=== PATIENT | female | born 1990 | race African-American/Black ===

== ENCOUNTER 2022-08-01 00:11 | Emergency (ER) | payer MEDICAID, OTHER ==
[~2022-08-01] VITALS: Ht 162.6 cm; Wt 97.9 kg
[2022-08-01] MEDS ORDERED: P50 PO ×2 (03:05→03:30)
[2022-08-01] MEDS ORDERED: DIPH25CA83 PO ×2 (03:05→03:30)
[2022-08-01] MEDS ORDERED: HYDR-4622 TP ×2 (03:05→03:30)
[2022-08-01 03:52] VITALS: BP 135/98
== END 2022-08-01 03:35 | disposition home or self-care (01) ==
LOC: ER 00:11
DX: L50.0 Allergic urticaria (principal); Z86.16 Personal history of COVID-19; Z98.890 Other specified postprocedural states
CPT/HCPCS: 81025; 99283

== ENCOUNTER 2025-01-22 23:19 | Emergency (ER) | payer OTHER ==
[~2025-01-22] VITALS: Ht 172.7 cm; Wt 86.0 kg
[~2025-01-22 23:19] MED LIST: DIPH25CA83 PO; HYDR-4622 TP; P50 PO
[2025-01-22 23:23] VITALS: BP 140/91; PULSE 70; RESP 18; TEMP 37.6; O2SAT 100
[2025-01-23 00:33] LABS: BASOPHILS % 0.2 % (0.0-2.0); EOSINOPHILS % 2.3 % (0.0-5.0); HEMATOCRIT. 41.6 % (36.0-48.0); HEMOGLOBIN. 13.6 g/dL (12.0-16.0); LYMPHOCYTES % 28.9 % (20.0-50.0); MEAN CORPUSCULAR HEMOGLOBIN 30.1 pg (28.0-32.0); MEAN CORPUSCULAR HGB CONC 32.7 g/dL (31.0-37.0); MEAN PLATELET VOLUME 8.7 fl (7.4-10.4); MONOCYTES % 5.8 % (2.0-8.0); NEUTROPHILS % 62.8 % (40.0-76.0); PLATELET 315 x1000/uL (130-400); RED BLOOD CELL COUNT 4.52 mill/uL (4.2-5.4); RED CELL DISTRIBUTION WIDTH 13.7 % (11.6-14.6); WHITE BLOOD COUNT 11.1 x1000/uL (4.5-11.0)
[2025-01-23 00:46] LABS: CHLORIDE 108 mEq/L (98-107); POTASSIUM 3.5 mEq/L (3.5-5.1); SODIUM 140 mEq/L (136-145)
[2025-01-23 00:47] LABS: CALCIUM 9.6 mg/dL (8.7-10.4); CARBON DIOXIDE 22 mEq/L (21-32)
[2025-01-23 00:52] LABS: CREATININE 0.9 mg/dL (0.6-1.0); GLUCOSE 128 mg/dL (70-105); UREA NITROGEN BLOOD 11 mg/dL (9-23)
[2025-01-23 01:19] LABS: TROPONIN I HIGH SENSITIVITY < 4 ng/L (3.0-34)
[2025-01-23 01:26] LABS: PARTIAL THROMBOPLASTIN TIME 26.8 sec (23.4-31.0)
[2025-01-23 03:25] LABS: HCG SCREEN NEGATIVE
== END 2025-01-23 03:50 | disposition home or self-care (01) ==
LOC: ER 23:19
DX: R07.89 Other chest pain (principal); R06.09 Other forms of dyspnea; E11.9 Type 2 diabetes mellitus without complications; Z79.52 Long term (current) use of systemic steroids
CPT/HCPCS: 80048; 85025; 84484; 36415; 71045; 93005; 99285; 84703; 83880; 85610; 85730; Z7610